=== PATIENT | male | born 1935 | race Caucasian/White ===

== ENCOUNTER → 2019-11-21 | Outpatient (CLI) | payer MEDICARE ==
[~2019-11-21] MED LIST: BENA40TA9 PO; FAMO20TA8 PO; GUAI-996 PO; MEMA10TA55 PO; OMEP40CA13 PO; ONDA-104 PO; QUET50TA55 PO; RISP1TAB26 PO; RISP3TAB13 PO
--- NOTE | 2019-11-21 11:30 | NUR ---
MBSS COMPLETED. ORAL DYSPHAGIA PRESENT. RECOMMEND FINELY CHOPPED, THIN LIQUIDS; PILLS WHOLE ONE AT AT TIME. SR. MANAGER PROVIDED FAMILY WITH WRITTEN HANDOUT OF RESULTS AND RECOMMENDATIONS. ALL QUESTIONS ANSWERED AT THIS TIME. Addendum: 11/21/19 at 1345 by ELIZABETH NAGEL, [facility] Amended: Links added.
== END | disposition home or self-care (01) ==
LOC: RAH 10:53
PROVIDERS: ATTEND Internal Medicine
DX: R13.11 Dysphagia, oral phase (principal); K21.9 Gastro-esophageal reflux disease without esophagitis
CPT/HCPCS: 74230; 92611

== ENCOUNTER 2019-11-25 09:50 | Observation (INO) | payer MEDICARE ==
[~2019-11-25] VITALS: Ht 175.3 cm; Wt 94.3 kg
[2019-11-25 10:22] LABS: BASOPHILS % (AUTO) 0.9 % (0.0-5.0); EOSINOPHILS % (AUTO) 6.2 % (0.0-8.0); HEMATOCRIT 41.7 % (42-54); LYMPHOCYTES % (AUTO) 15.9 % (21.0-51.0); MEAN CORPUSCULAR HEMOGLOBIN 31.3 pg (27.0-33.0); MEAN CORPUSCULAR HGB CONC 32.6 g/dL (32.0-36.0); MEAN CORPUSCULAR VOLUME 95.9 fL (79-99); NEUTROPHILS % (AUTO) 67.8 % (40.0-77.0); PLATELET COUNT (AUTO) 163 K/uL (130-400); RED BLOOD CELL COUNT(AUTO) 4.35 MIL/uL (4.50-6.20); RED CELL DISTRIBUTION WIDTH 12.5 % (11.0-15.5); WHITE BLOOD COUNT (AUTO) 4.4 K/uL (4.8-10.8)
[2019-11-25 10:36] LABS: INR 0.98 (0.85-1.15); PARTIAL THROMBOPLASTIN TIME 27.9 SEC (26.3-35.5); PROTHROMBIN TIME 10.6 SEC (9.6-11.6)
[2019-11-25 10:44] LABS: CREATININE 1.3 mg/dL (0.5-1.5); POTASSIUM 3.6 mmol/L (3.5-5.1)
[2019-11-25 10:49] LABS: ALBUMIN 3.5 g/dL (3.5-5.0); B-TYPE NATRIURETIC PEPTIDE 29 pg/mL (0-100); BILIRUBIN,TOTAL 0.2 mg/dL (0.2-1.0); MAGNESIUM 2.1 mg/dL (1.80-2.40); TOTAL PROTEIN, SERUM 6.8 g/dL (6.0-8.3)
[2019-11-25] MEDS ORDERED: IPRATROPIUM/ALBUTEROL SULFATE 3 ML SOLUTION IH ONE (11:20)
[2019-11-25] MEDS ORDERED: SODIUM CHLORIDE 0.9% 1000ML 1,000 ML IV ONE ×2 (11:21→17:33)
[2019-11-25] MEDS ORDERED: SODIUM CHLORIDE 0.9% 1000ML 1,000 ML IV SCH (14:30)
[2019-11-25] MEDS ORDERED: GUAI-996 PO (14:58)
[2019-11-25] MEDS ORDERED: RISP1TAB26 PO (14:58)
[2019-11-25] MEDS ORDERED: RISP3TAB13 PO (14:58)
[2019-11-25] MEDS ORDERED: OMEP40CA13 PO (14:58)
[2019-11-25] MEDS ORDERED: BENA40TA9 PO (14:58)
[2019-11-25] MEDS ORDERED: ONDA-104 PO (14:58)
[2019-11-25] MEDS ORDERED: QUET50TA55 PO (14:58)
[2019-11-25] MEDS ORDERED: FAMO20TA8 PO (14:58)
[2019-11-25] MEDS ORDERED: MEMA10TA55 PO (14:58)
[2019-11-25] MEDS ORDERED: CEFTRIAXONE SODIUM 1 GM ONE (17:32)
[2019-11-25] MEDS ORDERED: SODIUM CHLORIDE 0.9% 50 ML IV ONE (17:33)
[2019-11-25 17:57] LABS: APPEARANCE,URINE Cloudy (CLEAR); BILIRUBIN,URINE Negative (NEGATIVE); COLOR,URINE Yellow (YELLOW); GLUCOSE, URINE (UA) Negative (NEGATIVE); KETONES,URINE Negative (NEGATIVE); LEUKOCYTE ESTERASE ,URINE Negative (NEGATIVE); NITRATE,URINE Negative (NEGATIVE); OCCULT BLOOD,URINE Negative (NEGATIVE); PROTEIN,URINE Negative (NEGATIVE); UROBILINOGEN,URINE 0.2 mg/dL (0.2-1.0)
[2019-11-25] MEDS ORDERED: IPRATROPIUM/ALBUTEROL SULFATE 3 ML SOLUTION IH SCH (18:00)
[2019-11-25 18:08] LABS: AMORPHOUS SEDIMENT,UR Few /LPF (None Seen); BACTERIA,URINE Few /HPF (None Seen); RBC,URINE None Seen /HPF (0-1); WBC,URINE 0-1 /HPF (0-1)
[2019-11-26] MEDS ORDERED: CEFTRIAXONE SODIUM 1 GM IVP SCH (09:00)
== END 2019-11-25 21:16 | disposition left against medical advice (07) ==
LOC: EDH 09:50 → EDHIP 13:44
PROVIDERS: ADMIT Internal Medicine; ATTEND Internal Medicine
DX: R41.82 Altered mental status, unspecified (principal); J44.1 Chronic obstructive pulmonary disease with (acute) exacerbation; I12.9 Hypertensive chronic kidney disease with stage 1 through stage 4 chronic kidney disease, or unspecified chronic kidney disease; N18.3 Chronic kidney disease, stage 3 (moderate); D64.9 Anemia, unspecified; G30.9 Alzheimer's disease, unspecified; F02.80 Dementia in other diseases classified elsewhere, unspecified severity, without behavioral disturbance, psychotic disturbance, mood disturbance, and anxiety; Z85.46 Personal history of malignant neoplasm of prostate; Z87.891 Personal history of nicotine dependence
CPT/HCPCS: 36415; 70450; 71045; 80053; 81001; 82550; 83605; 83690; 83735; 83880; 84484; 85025; 85610; 85730; 87804 ×2; 93005; 94640; 99285; G0378 ×7; J0696; J7030 ×2